=== PATIENT | female | born 1975 | race Caucasian/White ===

== ENCOUNTER 2016-10-08 17:02 | Emergency (ER) | payer OTHER ==
[2016-10-08 17:21] VITALS: O2SAT 96
--- NOTE | 2016-10-08 18:27 | EDPHY ---
H & P Stated Complaint: Soft tissue swelling forehead since passing out 10/06/16;hit head Time Seen by Provider: 10/08/16 18:26 - Personal History LMP (Females 10-55): 1-7 Days Ago Current Tetanus Diphtheria and Acellular Pertussis (TDAP): Yes - Medical/Surgical History Other PMH: neg - Social History Smoking Status: Never smoked Constitutional: Initial Vital Signs Temperature (C) 37.1 C 10/08/16 17:18 Heart Rate 80 10/08/16 17:18 Respiratory Rate 16 10/08/16 17:18 Blood Pressure 126/81 H 10/08/16 17:18 O2 Sat (%) 96 10/08/16 17:18 O2 Delivery Mode Room Air Allergies/Adverse Reactions: ampicillin Allergy (Unknown, Verified 10/08/16 17:18) as toddler Home Medications: Medication Instructions Recorded NK [No Known Home Meds] 10/08/16 Medical Decision Making ED Course/Re-evaluation: CHIEF COMPLAINT: Forehead hematoma HISTORY OF PRESENT ILLNESS: The patient is a 41 y/o female complaining of a worsening hematoma on her forehead secondary to falling early Friday morning, about 42 hours ago. She says she got up from bed to use the bathroom, sat down, and then woke up on the floor finding she had defecated on herself. She had pain on her forehead, but otherwise felt normal following the likely syncope. She came in to the ED today because she feels the hematoma is getting worse. She has not had recurrent syncope or near syncope and has otherwise felt normal. No anticoagulants. REVIEW OF SYSTEMS: A 10 point review of systems was performed and is negative with the exception of the elements mentioned in the history of present illness. PHYSICAL EXAM: HR, BP, O2 Sat, RR. Temp noted General Appearance: Alert, well hydrated, appropriate, and non-toxic appearing. Head: Forehead hematoma, otherwise atraumatic without scalp tenderness or obvious injury Eyes: Pupils equal, round, reactive to light and accommodation, EOMI, no trauma , no injection. Ears: Clear bilaterally, no perforation, normal landmarks Nose: Atraumatic, no rhinorrhea, clear. Throat: There is no erythema or exudates, no lesions, normal tonsils, mucus membranes moist. Neck: Supple, 2+ carotid upstroke, nontender, no lymphadenopathy. Respiratory: No retractions, no distress, no wheezes, and no accessory muscle use. Lungs are clear to auscultation bilaterally. Cardiovascular: Regular rate and rhythm, no murmurs, rubs, or gallops. Bilateral carotid, radial, dorsalis pedis, and posterior tibial pulses intact. Good capillary refill all extremities. Gastrointestinal: Abdomen is soft, nontender, non-distended, no masses, no rebound, no guarding, no peritoneal signs. Musculoskeletal: Normal active ROM of all extremities, atraumatic. Neurological: Alert, appropriate, and interactive. The patient has normal DTRs and non-focal cranial nerves, motor, sensory, and cerebellar exam. Skin: No rashes, good turgor, no nodules on palpation. Past medical history: Antiphospholipid antibody syndrome without symptoms, anticoagulants only during Past surgical history: Noncontributory Family history: Noncontributory Social history: Lives in [place] DIAGNOSTICS/PROCEDURES/CRITICAL CARE TIME: Study: CT of the Head Indication: Pain, trauma Results: CT scan of the head was obtained. The results of the study are negative. The study was read by the radiologist, Dr. Sage. I viewed the images myself on the PACS system. DIFFERENTIAL DIAGNOSIS: The differential diagnosis for the patient's trauma and syncope included but was not limited to intracranial injury, vasovagal syncope, arrhythmia, dehydration, cardiogenic causes, neurogenic causes, and blood loss. MEDICAL DECISION MAKING: This is a healthy 41 y/o female presenting to the ED with a tender forehead hematoma secondary to striking her head during vasovagal syncope on the toilet almost 48 hours ago. She has no other symptoms or visible trauma on exam. She is neurovascularly intact. Plan for head CT due to visible trauma and LOC, though it is more likely she lost consciousness prior to striking her forehead. Plan for head CT. 2005: Head CT negative for intracranial findings per Dr. Sage. I discussed the results with the patient. She will be discharged with referral to her PCP for follow up. Return precautions given. She agrees with this plan. Departure - Departure Disposition: Home, Routine, Self-Care Clinical Impression: Vasovagal syncope Traumatic hematoma of forehead Qualifiers: Encounter type: initial encounter Qualifier Code: (S00.83XA) Contusion of other part of head, initial encounter Condition: Good Instructions: Syncope (ED), Contusion in Adults (ED) Additional Instructions: Follow up with your primary care provider for symptoms not improved over the next 2-3 days. Return to the ED for any worsening of condition. Referrals: Trisha Mohan MD [Primary Care Provider] - As per Instructions Report Scribed for: Maulik Blank Report Scribed by: Judy Georges Date of Report: 10/08/16 Time of Report: 19:03
--- NOTE | 2016-10-08 20:14 | CT ---
CT Head (Without Contrast) - October 08, 2016 Indication: Altered mental status. Technique: Standard noncontrast head CT protocol utilizing 5-mm thick collimated slices and field of view of 23 cm. Dose reduction techniques were utilized. Findings: The brain is normally developed. No intracranial hemorrhage, mass lesion, swelling, or ext raaxial fluid collection. The ventricles are normal caliber and midline. The dumont and white matter dasilva s normal attenuation. Dumont-white interfaces are preserved. The bones are unremarkable. Mucosal thicke chapis and dependent material resides in bilateral maxillary sinuses. No mucoperiosteal reaction or ero sions. Paranasal sinuses are otherwise clear. Impression: Normal brain. No acute intracranial hemorrhage, mass, or evidence of ischemia Comment: Case was discussed with Dr. Maulik Blank at 8:05 p.m. on October 08, 2016.
[2016-10-08 20:23] VITALS: BP 123/79; PULSE 81; RESP 17; TEMP 98.2
== END 2016-10-08 20:20 | disposition home or self-care (01) ==
DX: S00.83XA Contusion of other part of head, initial encounter (principal); R55 Syncope and collapse; W18.39XA Other fall on same level, initial encounter

== ENCOUNTER → 2017-04-22 | Outpatient (CLI) | payer OTHER | LOC: BMCIMAGING 14:43 | PROVIDERS: ATTEND Family Medicine | DX: Z12.31 Encounter for screening mammogram for malignant neoplasm of breast (principal); Z80.3 Family history of malignant neoplasm of breast | CPT/HCPCS: G0202 ==

== ENCOUNTER → 2018-06-19 | Outpatient (CLI) | payer OTHER | LOC: BMCIMAGING 08:18 | PROVIDERS: ATTEND Family Medicine | DX: Z12.31 Encounter for screening mammogram for malignant neoplasm of breast (principal); Z80.3 Family history of malignant neoplasm of breast ==